=== PATIENT | male | born 1980 | race Caucasian/White ===

== ENCOUNTER 2021-03-06 12:02 | Emergency (ER) | payer OTHER ==
[~2021-03-06] VITALS: Ht 175.3 cm; Wt 72.0 kg
[2021-03-06 12:13] VITALS: BP 131/90
--- NOTE | 2021-03-06 12:26 | PHYS DOC ---
Past History Past Medical History: No Pertinent History Smoking: Non-smoker Alcohol Use: Rarely Drug Use: None Adult General Chief Complaint Chief Complaint: CHEST PAIN HPI HPI Patient is a 40-year-old male presenting for chest pain. This is an acute on chronic issue. He is active duty healthy and fully vaccinated against COVID-19 but reports all symptoms started after COVID-19 infection December 2020. Reports during acute phase of infection he was hospitalized and evaluated for chest pain that was grossly unremarkable and subsequently discharged home. He has been following up in outpatient setting due to recurrent and ongoing chest pain with [facility] cardiology team. He recently had lab work performed after being seen by cardiology team 5 days prior that showed an elevated D-dimer at 0.6 and he was notified to present to our ER for further evaluation and to rule out pulmonary embolism. Admits he is otherwise pending outpatient echocardiogram in May. He has no history of DVT or other clots, takes Mobic daily at the direction of sustainability manager otherwise no other medications. States pain is over her left breast and deep with occasional radiation to left neck and shoulder, worse with inspiration and lying down Review of Systems Review of Systems Fourteen body systems of review of systems have been reviewed. See HPI for pertinent positives and negative responses, other boles all other systems are negative, non-pertinent or non-contributory Physical Exam Physical Exam Constitutional: Well developed, well nourished, no acute distress, non-toxic appearance. HENT: Normocephalic, atraumatic, bilateral external ears normal, oropharynx moist, no oral exudates, nose normal. Eyes: PERRLA, EOMI, conjunctiva normal, no discharge. Neck: Normal range of motion, no tenderness, supple, no stridor. Cardiovascular: Heart rate bradycardic, sinus rhythm, no murmurs rubs or gallops Lungs & Thorax: Bilateral breath sounds clear to auscultation Abdomen: Bowel sounds normal, soft, no tenderness, no masses, no pulsatile masses. Nonsurgical abdomen, no peritoneal signs Skin: Warm, dry, no erythema, no rash. Back: No tenderness, no CVA tenderness. Extremities: No tenderness, no cyanosis, no clubbing, ROM intact, no edema. Neurologic: Alert and oriented X 3, grossly normal motor & sensory function, no focal deficits noted. Psychologic: Affect normal, judgement normal, mood normal. Current Patient Data Vital Signs Vital Signs Date Time Temp Pulse Resp B/P (MAP) Pulse Ox O2 Delivery O2 Flow Rate FiO2 03/06/21 12:13 97.5 56 18 131/90 (104) Room Air Vital Signs Date Time Temp Pulse Resp B/P (MAP) Pulse Ox O2 Delivery O2 Flow Rate FiO2 03/06/21 12:13 97.5 56 18 131/90 (104) Room Air Lab Results Laboratory Tests Test 03/06/21 12:40 White Blood Count 4.6 x10^3/uL Red Blood Count 4.60 x10^6/uL Hemoglobin 14.0 g/dL Hematocrit 40.5 % Mean Corpuscular Volume 88 fL Mean Corpuscular Hemoglobin 31 pg Mean Corpuscular Hemoglobin Concent 35 g/dL Red Cell Distribution Width 13.1 % Platelet Count 208 x10^3/uL Neutrophils (%) (Auto) 66 % Lymphocytes (%) (Auto) 25 % Monocytes (%) (Auto) 7 % Eosinophils (%) (Auto) 0 % Basophils (%) (Auto) 1 % Neutrophils # (Auto) 3.1 x10^3uL Lymphocytes # (Auto) 1.2 x10^3/uL Monocytes # (Auto) 0.3 x10^3/uL Eosinophils # (Auto) 0.0 x10^3/uL Basophils # (Auto) 0.0 x10^3/uL Sodium Level 141 mmol/L Potassium Level 3.9 mmol/L Chloride Level 104 mmol/L Carbon Dioxide Level 30 mmol/L Anion Gap 7 Blood Urea Nitrogen 13 mg/dL Creatinine 0.9 mg/dL Estimated GFR (Cockcroft-Gault) 93.5 Glucose Level 82 mg/dL Calcium Level 8.7 mg/dL Troponin I High Sensitivity 8 ng/L [id number] Natriuretic Peptide 34 pg/mL Current Medications Medications (Trade) Dose Ordered Sig/Loni Route PRN Reason Start Time Stop Time Status Last Admin Dose Admin Aspirin (Aspirin Chewable) 324 mg 1X ONCE PO 03/06/21 12:30 03/06/21 12:31 DC 03/06/21 12:33 Iohexol (Omnipaque 350 Mg/ml) 100 ml 1X ONCE IV 03/06/21 12:30 03/06/21 12:31 DC 03/06/21 12:50 Info (Do NOT chart on this entry -- for MONITORING) 1 each PRN DAILY PRN MC SEE COMMENTS 03/06/21 12:30 03/06/21 17:28 DC EKG EKG EKG ordered and interpreted by myself at 1220 hrs. as sinus bradycardia at 44 bpm, unremarkable intervals, no axis deviation, no acute ischemic findings, no STEMI Radiology/Procedures Radiology/Procedures Study: CT CHEST WITH CONTRAST - PULMONARY ANGIOGRAM History: Chest pain. Elevated d-dimer. Status post Covid. Pulmonary embolism. Comparison: None. Technique: Helical CT of the chest performed after the administration of 100 cc Omnipaque 350 intravenous contrast and timed for angiographic evaluation of the pulmonary arteries per PE protocol. Coronal and sagittal 3D MIP reformations were obtained. One or more of the following individualized dose reduction techniques were utilized for this examination: 1. Automated exposure control 2. Adjustment of the mA and/or kV according to patient size 3. Use of iterative reconstruction technique. Findings: Pulmonary Arteries: No main, lobar or segmental pulmonary embolism. Heart/Systemic Vasculature: No aortic aneurysm or dissection. Normally config ured interventricular septum. Mediastinum: No adenopathy or pericardial effusion. Lungs: No airspace infiltrates. Patent central airways. No effusion. Neck/Axilla/Body Wall: No significant finding. Upper Abdomen: Unremarkable. Bones: No advanced spondylosis. Miscellaneous: None. IMPRESSION: No pulmonary embolism or alternative acute abnormality seen throughout the chest. Electronically signed by: HEVER MEEKS MD (03/06/2021 1:27 PM) [facility] Heart Score C/O Chest Pain: Yes HEART Score for Chest Pain: HEART Score for Chest Pain Response (Comments) Value History Slighlty/Non-Suspicious 0 ECG Normal 0 Age < 45 0 Risk Factors No Risk Factors 0 Troponin < Normal Limit 0 Total 0 Risk Factors: Risk Factors: DM, Current or recent (<one month) smoker, HTN, HLP, family history of CAD, obesity. Risk Scores: Risk Factors: DM, Current or recent (<one month) smoker, HTN, HLP, family history of CAD, obesity. Course & Med Decision Making Course & Med Decision Making ABCs unremarkable HPI and comprehensive physical exam nonconcerning for any emergent or surgical issues No indication for further diagnostic ER workup, intervention, or hospitalization at this time Patient has good access to care with PCP and sustainability manager who I recommended he follow-up with for continuity of care status post recent COVID-19 for which she is still experiencing sequelae. Strict return precautions discussed at length prior to departure Luis Disclaimer Luis Disclaimer This electronic medical record was generated, in whole or in part, using a voice recognition dictation system. Departure Departure: Impression: Primary Impression: Chest pain Additional Impression: [id number] syndrome Disposition: HOME / SELF CARE / HOMELESS Condition: STABLE Referrals: ERINN GORDILLO-MARK (PCP) Additional Instructions: You were seen for chest pain. Your workup did not show any acute abnormalities today, but does not indicate that you do not have underlying cardiovascular disease. You do need to follow up with your primary doctor and your sustainability manager for further evaluation and treatment. You should follow-up with previously scheduled echocardiogram and discuss potential utility of outpatient stress test and/or event monitor and/or coronary calcium scan. You should return to the ED if you develop worsening chest pain, shortness of breath, fever, abnormal sweating, leg swelling, or any other new or concerning symptoms. Problem Qualifiers JENNIFER NUR DO Mar 06, 2021 12:26
[2021-03-06] MEDS ORDERED: IOHEXOL 350 MG/ML 100 ML VIAL. IV ONE (12:30)
[2021-03-06] MEDS ORDERED: CONTRAST GIVEN. MC PRN (12:30)
[2021-03-06] MEDS ORDERED: ASPIRIN CHEWABLE 81 MG TABLET. PO ONE (12:30)
--- NOTE | 2021-03-06 12:37 | EKG ---
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
[2021-03-06 12:53] LABS: BASO % 1 % (0-3); EOS % 0 % (0-3); HEMATOCRIT 40.5 % (39.0-53.0); LYMPH # 1.2 x10^3/uL (1.0-4.8); LYMPH % 25 % (24-48); MEAN CORPUSCULAR HEMOGLOBIN 31 pg (25-35); MEAN CORPUSCULAR HGB CONC 35 g/dL (31-37); MEAN CORPUSCULAR VOLUME 88 fL (79-100); MONO # 0.3 x10^3/uL (0.0-1.1); MONO % 7 % (0-9); NEUT # 3.1 x10^3uL (1.8-7.7); NEUT % 66 % (31-73); PLATELET COUNT 208 x10^3/uL (140-400); RED CELL DISTRIBUTION WIDTH 13.1 % (11.5-14.5); WHITE BLOOD COUNT 4.6 x10^3/uL (4.0-11.0)
[2021-03-06 13:10] LABS: CALCIUM 8.7 mg/dL (8.5-10.1); CREATININE 0.9 mg/dL (0.7-1.3); GFR 93.5; POTASSIUM 3.9 mmol/L (3.5-5.1)
--- NOTE | 2021-03-06 13:29 | RAD ---
Study: CT CHEST WITH CONTRAST - PULMONARY ANGIOGRAM History: Chest pain. Elevated d-dimer. Status post Covid. Pulmonary embolism. Comparison: None. Technique: Helical CT of the chest performed after the administration of 100 cc Omnipaque 350 intrav enous contrast and timed for angiographic evaluation of the pulmonary arteries per PE protocol. Coron al and sagittal 3D MIP reformations were obtained. One or more of the following individualized dose reduction techniques were utilized for this examinat ion: 1. Automated exposure control 2. Adjustment of the mA and/or kV according to patient size 3. Use of iterative reconstruction technique. Findings: Pulmonary Arteries: No main, lobar or segmental pulmonary embolism. Heart/Systemic Vasculature: No aortic aneurysm or dissection. Normally configured interventricular se ptum. Mediastinum: No adenopathy or pericardial effusion. Lungs: No airspace infiltrates. Patent central airways. No effusion. Neck/Axilla/Body Wall: No significant finding. Upper Abdomen: Unremarkable. Bones: No advanced spondylosis. Miscellaneous: None. IMPRESSION: No pulmonary embolism or alternative acute abnormality seen throughout the chest. Electronically signed by: HEVER MEEKS MD (03/06/2021 1:27 PM) [facility]
== END 2021-03-06 14:35 | disposition home or self-care (01) ==
LOC: ER 12:02
DX: R07.89 Other chest pain (principal); U09.9 Post COVID-19 condition, unspecified
CPT/HCPCS: 36415; 71275; 80048; 83880; 84484; 85025; 93005; 99285; Q9967

== ENCOUNTER 2021-05-27 09:22 | Emergency (ER) | payer OTHER ==
[~2021-05-27] VITALS: Ht 175.3 cm; Wt 75.2 kg
[2021-05-27] MEDS ORDERED: MORPHINE SULFATE 4 MG/ML DISP.SYRIN. IM ONE (09:45)
--- NOTE | 2021-05-27 09:58 | RAD ---
EXAM: 3 Views Right Shoulder DATE: 05/27/2021 9:39 AM INDICATION: Reason: pain COMPARISON: CT chest from 03/06/2021 FINDINGS: There is no evidence for acute fracture or dislocation. AC joint is congruent. No significant degener ative changes. Humeral head is not high riding. IMPRESSION: 1. No acute fracture or dislocation. Electronically signed by: Tomas Pinto DO (05/27/2021 9:55 AM) [id number]
[2021-05-27] MEDS ORDERED: ACET1TAB56 PO (10:18)
--- NOTE | 2021-05-27 10:22 | PHYS DOC ---
Past History Past Medical History: No Pertinent History Past Surgical History: Tonsillectomy Additional Past Surgical Histo: LEFT ACL Smoking: Non-smoker Alcohol Use: None Drug Use: None General Adult EDM: Chief Complaint: UPPER EXTREMITY PAIN HPI: HPI: Patient is a 41-year male coming in for right shoulder pain. Patient was doing bench presses and in the down position getting ready to raise weights again or he felt a tearing sensation in his right anterior shoulder and pectoral muscles. Denies feeling a pop. Denies any tingling or paresthesias arm. Review of Systems: Review of Systems: All other systems within normal limits except for as noted in the HPI Current Medications: Current Meds: Current Medications Medications (Trade) Dose Ordered Sig/Loni Start Time Stop Time Status Last Admin Dose Admin Morphine Sulfate (Morphine 4mg Syringe) 6 mg 1X ONCE 05/27/21 09:45 05/27/21 09:46 DC Allergies: Allergies: Allergies Coded Allergies Type Severity Reaction Last Updated Verified No Known Drug Allergies 05/27/21 No Physical Exam: PE: Constitutional: Well developed, well nourished, no acute distress, non-toxic appearance. [] HENT: Normocephalic, atraumatic, bilateral external ears normal, nose normal. [] Eyes: PERRLA, conjunctiva normal, no discharge. [] Neck: No rigidity, supple, no stridor. [] Cardiovascular: Regular rate and rhythm, brisk cap refill [] Lungs & Thorax: Non labored symmetric respirations, no tachypnea or respiratory distress [] Abdomen: Soft, nondistended. Skin: Warm, dry, no erythema, no rash. [] Back: Unremarkable Extremities: No deformities, range of motion grossly intact, no lower extremity edema. Able to touch opposite shoulder. Bicep muscle intact. Tenderness over right lateral pectoral muscle. No crepitus or deformity. Sensation intact distal to injury. [] Neurologic: Alert and oriented X 3, no focal deficits noted. [] Psychologic: Affect normal, judgement normal, mood normal. [] Current Patient Data: Vital Signs: Vital Signs Date Time Temp Pulse Resp B/P (MAP) Pulse Ox O2 Delivery O2 Flow Rate FiO2 05/27/21 09:35 98.2 63 20 139/87 (104) 100 Room Air EKG: EKG: [] Radiology/Procedures: Radiology/Procedures: [] Heart Score: C/O Chest Pain: No Risk Factors: Risk Factors: DM, Current or recent (<one month) smoker, HTN, HLP, family history of CAD, obesity. Risk Scores: Score 0 - 3: 2.5% MACE over next 6 weeks - Discharge Home Score 4 - 6: 20.3% MACE over next 6 weeks - Admit for Clinical Observation Score 7 - 10: 72.7% MACE over next 6 weeks - Early Invasive Strategies Course & Med Decision Making: Course & Med Decision Making Pertinent Labs and Imaging studies reviewed. (See chart for details) [] Dragon Disclaimer: Dragon Disclaimer: This electronic medical record was generated, in whole or in part, using a voice recognition dictation system. Departure Departure: Impression: Primary Impression: Right shoulder injury Disposition: HOME / SELF CARE / HOMELESS Condition: STABLE Referrals: ERINN GORDILLO-MARK (PCP) Patient Instructions: RICE - Routine Care for Injuries Additional Instructions: Call tomorrow morning for a follow-up appointment with Dr. Ascencion Griffiths [facility], [address] [address] Scripts Acetaminophen With Codeine (ACETAMINOPHEN-COD #3 TABLET) 1 Each Tablet 1 TAB PO PRN Q6HRS PRN for PAIN for 3 Days, #12 TAB Prov: KRISTEN JOHNSON MD 05/27/21 KRISTEN JHONSON MD May 27, 2021 10:22
[2021-05-27 10:45] VITALS: BP 130/70
== END 2021-05-27 10:48 | disposition home or self-care (01) ==
LOC: ER 09:22
DX: S49.91XA Unspecified injury of right shoulder and upper arm, initial encounter (principal); X50.9XXA Other and unspecified overexertion or strenuous movements or postures, initial encounter; Y93.89 Activity, other specified; Y92.89 Other specified places as the place of occurrence of the external cause; Y99.8 Other external cause status
CPT/HCPCS: 73030; 99283; J2270